=== PATIENT | female | born 2000 | race Caucasian/White ===

== ENCOUNTER 2018-08-25 16:25 | Emergency (ER) | payer OTHER ==
[2018-08-25] MEDS: NS 1,000 ML IV (19:30)
[2018-08-25 19:44] LABS: BASO # 0.1 10^3/uL (0.0-0.2); BASO % 0.8 % (0.0-1.0); EOS # 0.3 10^3/uL (0.0-0.50); HEMATOCRIT 44.7 % (36.0-47.0); HEMOGLOBIN 15.1 g/dl (12.0-15.5); IMMATURE GRANULOCYTE % 0.3 % (0-3.0); LYMPH # 2.4 10^3/uL (1.5-6.5); LYMPH % 36.8 % (24.0-44.0); MEAN CORPUSCULAR HEMOGLOBIN 30.8 pg (27.0-33.0); MEAN CORPUSCULAR HGB CONC 33.8 g/dl (32.0-36.5); MONO # 0.3 10^3/uL (0.0-0.8); MONO % 5.1 % (0.0-5.0); NEUTROPHILS # 3.4 10^3/uL (1.8-7.7); PLATELET COUNT, AUTOMATED 271 10^3/uL (150-450); RED BLOOD COUNT 4.91 10^6/uL (4.00-5.40); RED CELL DISTRIBUTION WIDTH 12.5 % (11.5-14.5); WHITE BLOOD COUNT 6.5 10^3/uL (4.0-10.0)
[2018-08-25 19:55] LABS: KETONE, URINE AUTO RFX NEGATIVE (NEGATIVE); LEUKOCYTE ESTERASE UR AUTO RFX NEGATIVE (NEGATIVE); NITRITE, URINE AUTO RFX NEGATIVE (NEGATIVE); RBC, URINE AUTO RFX 1 /HPF (0-3); SPECIFIC GRAVITY UR AUTO RFX 1.009 (1.002-1.035); SQUAM EPITHELIAL CELL UR AURFX 0 /HPF (0-6); WBC, URINE AUTO RFX 0 /HPF (0-3)
[2018-08-25 20:20] LABS: ALBUMIN 4.3 GM/DL (3.2-5.2); ALBUMIN/GLOBULIN RATIO 1.43 (1.00-1.93); ALKALINE PHOSPHATASE 85 U/L (45-117); ALT/SGPT 19 U/L (12-78); ANION GAP 8 MEQ/L (8-16); AST/SGOT 16 U/L (7-37); BILIRUBIN,DIRECT 0.1 MG/DL (0.0-0.2); BILIRUBIN,TOTAL 0.4 MG/DL (0.2-1.0); BLOOD UREA NITROGEN 7 MG/DL (7-18); CALCIUM LEVEL 9.9 MG/DL (8.5-10.1); CARBON DIOXIDE LEVEL 27 MEQ/L (21-32); CHLORIDE LEVEL 107 MEQ/L (98-107); CREATININE FOR GFR 0.82 MG/DL (0.55-1.30); GLUCOSE, FASTING 92 MG/DL (70-100); LIPASE 166 U/L (73-393); POTASSIUM SERUM 4.2 MEQ/L (3.5-5.1); SODIUM LEVEL 142 MEQ/L (136-145); TOTAL PROTEIN 7.3 GM/DL (6.4-8.2)
[2018-08-25] MEDS ORDERED: ISOVUE-370 76% 100ML VIAL (Q9967) As Ordered (20:32)
[2018-08-25 23:46] LABS: CHLAMYDIA DNA AMPLIFICATION NEGATIVE (NEGATIVE); GC DNA AMPLIFICATION NEGATIVE (NEGATIVE)
== END 2018-08-25 23:29 | disposition home or self-care (01) ==
LOC: M ED 16:25
DX: N92.6 Irregular menstruation, unspecified (principal); R10.2 Pelvic and perineal pain
CPT/HCPCS: Q9967

== ENCOUNTER 2019-02-13 11:37 | Emergency (ER) | payer OTHER ==
[~2019-02-13] VITALS: Ht 157.5 cm; Wt 68.2 kg
[2019-02-13] MEDS ORDERED: IBUPROFEN 800 MG TAB PO ONE (12:30)
[2019-02-13 12:38] LABS: BASO % 0.6 % (0.0-1.0); EOS # 0.2 10^3/uL (0.0-0.50); EOS % 4.7 % (0.0-3.0); HEMATOCRIT 43.2 % (36.0-47.0); HEMOGLOBIN 14.9 g/dl (12.0-15.5); LYMPH # 1.5 10^3/uL (1.5-6.5); LYMPH % 31.5 % (24.0-44.0); MEAN CORPUSCULAR HEMOGLOBIN 30.6 pg (27.0-33.0); MEAN CORPUSCULAR HGB CONC 34.5 g/dl (32.0-36.5); MEAN CORPUSCULAR VOLUME 88.7 fl (80.0-96.0); MONO # 0.4 10^3/uL (0.0-0.8); MONO % 9.3 % (0.0-5.0); NEUTROPHILS # 2.5 10^3/uL (1.8-7.7); NEUTROPHILS % 53.7 % (36.0-66.0); PLATELET COUNT, AUTOMATED 215 10^3/uL (150-450); RED BLOOD COUNT 4.87 10^6/uL (4.00-5.40); WHITE BLOOD COUNT 4.7 10^3/uL (4.0-10.0)
[2019-02-13 13:07] LABS: BLOOD UREA NITROGEN 12 MG/DL (7-18); CALCIUM LEVEL 8.8 MG/DL (8.5-10.1); CARBON DIOXIDE LEVEL 24 MEQ/L (21-32); CHLORIDE LEVEL 110 MEQ/L (98-107); CREATININE FOR GFR 0.79 MG/DL (0.55-1.30); GLUCOSE, FASTING 84 MG/DL (70-100); POTASSIUM SERUM 4.2 MEQ/L (3.5-5.1); SODIUM LEVEL 139 MEQ/L (136-145)
[2019-02-13 13:32] VITALS: BP 121/66
[2019-02-13] MEDS ORDERED: IBUP80TA PO (14:16)
[2019-02-13 14:24] LABS: CHLAMYDIA DNA AMPLIFICATION NEGATIVE (NEGATIVE); GC DNA AMPLIFICATION NEGATIVE (NEGATIVE)
[2019-02-15 10:11] LABS: TESTOSTERONE FREE (DIRECT) 1.2 pg/mL (0.0-4.2)
== END 2019-02-13 14:24 | disposition home or self-care (01) ==
LOC: M ED 11:37
DX: R10.2 Pelvic and perineal pain (principal); N92.6 Irregular menstruation, unspecified; Z87.39 Personal history of other diseases of the musculoskeletal system and connective tissue

== ENCOUNTER 2019-04-20 09:43 | Day surgery (SDC) | payer OTHER ==
[~2019-04-20] VITALS: Ht 157.5 cm; Wt 71.3 kg
[~2019-04-20 09:43] MED LIST: ACETAMINOPHEN 650 MG SUPP PR ONE; IBUP80TA PO; LIDOCAINE 1% MDV 20ML VIAL SQ PRN; LR 1,000 ML IV ONE; NS 1,000 ML IV SCH
[2019-04-20 10:09] LABS: HEMATOCRIT 42.8 % (36.0-47.0); MEAN CORPUSCULAR HEMOGLOBIN 31.3 pg (27.0-33.0); MEAN CORPUSCULAR VOLUME 89.4 fl (80.0-96.0); PLATELET COUNT, AUTOMATED 245 10^3/uL (150-450); RED BLOOD COUNT 4.79 10^6/uL (4.00-5.40); WHITE BLOOD COUNT 6.2 10^3/uL (4.0-10.0)
[2019-04-20 10:37] LABS: BLOOD UREA NITROGEN 11 MG/DL (7-18); CALCIUM LEVEL 9.4 MG/DL (8.5-10.1); CARBON DIOXIDE LEVEL 23 MEQ/L (21-32); CHLORIDE LEVEL 109 MEQ/L (98-107); GLUCOSE, FASTING 86 MG/DL (70-100); HCG, SERUM QUANTITATIVE < 1.0 MIU/ML; POTASSIUM SERUM 4.3 MEQ/L (3.5-5.1); SODIUM LEVEL 140 MEQ/L (136-145)
[2019-04-20] MEDS ORDERED: METHYLENE BLUE 0.5% (5MG/ML) 10 ML AMP (PROVAYBLUE)(Q9968 PER 1MG) As Ordered ONE (13:30)
[2019-04-20] MEDS ORDERED: BUPIVACAINE HCL 0.5% 30 ML VIAL As Ordered ONE (13:30)
[2019-04-20] MEDS ORDERED: ACETAMINOPHEN 650 MG SUPP As Ordered ONE (13:30)
[2019-04-20] MEDS ORDERED: PROPOFOL 200 MG/20 ML VIAL As Ordered ONE (14:05)
[2019-04-20] MEDS ORDERED: GLYCOPYRROLATE INJ 0.2 MG/ML 2 ML VIAL As Ordered ONE (14:05)
[2019-04-20] MEDS ORDERED: ONDANSETRON 4MG/2ML VIAL (J2405) As Ordered ONE ×2 (14:05→16:17)
[2019-04-20] MEDS ORDERED: PHENYLephrine HCL 500 MCG/5 ML (100MCG/ML) SYRINGE (J2370) As Ordered ONE (14:05)
[2019-04-20] MEDS ORDERED: MIDAZOLAM INJ 2 MG/2 ML VIAL (J2250) As Ordered ONE (14:05)
[2019-04-20] MEDS ORDERED: SUGAMMADEX SODIUM 500 MG/5 ML VIAL (BRIDION) As Ordered ONE (14:05)
[2019-04-20] MEDS ORDERED: LIDOCAINE 2% INJ 100 MG/5 ML SDV (FOR ANES.) As Ordered ONE (14:05)
[2019-04-20] MEDS ORDERED: dexameTHASONE 4 MG/ML 1ML VIAL (J1100) As Ordered ONE (14:05)
[2019-04-20] MEDS ORDERED: fentaNYL 250 MCG/5 ML INJECTION (J3010) As Ordered ONE (14:05)
[2019-04-20] MEDS ORDERED: ROCURONIUM BROMIDE 50 MG/5 ML VIAL As Ordered ONE (14:05)
[2019-04-20] MEDS ORDERED: ePHEDrine SULFATE 25 MG/5 ML(5MG/ML) SYRINGE As Ordered ONE (14:05)
[2019-04-20] MEDS ORDERED: KETOROLAC 60 MG/2 ML VIAL (J1885) As Ordered ONE (14:05)
[2019-04-20] MEDS ORDERED: ONDANSETRON 4MG/2ML VIAL (J2405) IV PRN (15:15)
[2019-04-20] MEDS ORDERED: PERCOCET 5MG/325MG TAB PO PRN (15:15)
[2019-04-20] MEDS ORDERED: LR 1,000 ML IV SCH (15:15)
[2019-04-20] MEDS ORDERED: oxyCODONE 5MG TAB As Ordered ONE (15:28)
[2019-04-20] MEDS: oxyCODONE 5MG TAB PO PRN ×2 (15:30→16:00)
[2019-04-20] MEDS ORDERED: fentaNYL 100 MCG/2 ML INJECTION (J3010) As Ordered ONE (16:17)
[2019-04-20] MEDS: fentaNYL 100 MCG/2 ML INJECTION (J3010) IV PRN ×4 (16:30→16:45)
[2019-04-20 19:20] VITALS: BP 113/70
[2019-04-20] MEDS ORDERED: KETOROLAC 30 MG/ML VIAL (J1885) IV PRN (20:30)
--- NOTE | 2019-04-27 14:06 | RO ---
DATE OF PROCEDURE: 04/20/2019 PREOPERATIVE DIAGNOSES: Vaginal pain and pelvic pain and radiating down the thigh. POSTOPERATIVE DIAGNOSES: Vaginal pain, pelvic pain radiating down the thigh, and primary infertility. Patent tubes, normal pelvis, removal of intrauterine contraceptive device (IUCD). OPERATION PROPOSED: Diagnostic laparoscopy, chromotubation of tubes, hysteroscopy, and removal of IUCD. OPERATION PERFORMED: Laparoscopy, chromotubation of tubes, and removal of IUCD. ANESTHESIA: General plus local anesthetic for intraperitoneal procedures. ESTIMATED BLOOD LOSS: Less than 10 mL SURGEON: Chandrakant Lawrence MD FIRESTOPPER INSTALLER: DESCRIPTION OF PROCEDURE: After appropriate anesthesia, prepped and draped in the lithotomy position, Cee catheter in the bladder draining clear urine, acetaminophen suppository 1300 mg per rectum. No antibiotics required. Sequentials in place. A weighted speculum in vagina. Single-tooth tenaculum on the anterior lip of the cervix. The cervix itself looked normal. The vagina, lateral hilton, anterior and posterior hilton looked normal. There was no perineal defect. There was no defect in the muscle architecture of the vagina. There was no bulging. There were no lesions indicating etiology behind vaginal pain. Re-prepping and draping, small subumbilical incision was made. Veress needle was applied. 3.1 liters of CO2 at a flow rate of 14 to a pressure of 15. Visiport was used. Direct entry into the abdomen. No evidence of perforation, hemorrhage, or bleeding. Panoramic view: Right upper quadrant was normal. Left upper quadrant was normal. Anterior aspect of the bladder was clear. The uterus itself was normal size and architecture. Posterior cul-de-sac was clear. No evidence of endometriosis, pelvic inflammatory disease. Both tubes were visualized at the fimbriated end. Appendix was noted to be normal. Chromotubation with a mavis's cannula was placed, and we got good flow immediately through both tubes bilaterally, indicating tubal patency. We see no evidence of pathology for this lady's pain or her secondary infertility. With instrument and pad count correct, the ports, the 5 mm on the left side was removed, as was the umbilical area. Subcuticular stitches were placed in all areas. Marcaine 0.25% for anesthesia. Skin tapes were done. We then went below. We were able to visualize and see the IUCD strings. These were pulled and sent to pathology under separate cover. We also evaluated the endometrial cavity based on her last period, and separately tissue was sent. With instrument and pad count correct, the uterus was replaced in anatomical position. Cee catheter was removed, and the patient was sent to recovery in good condition. SUZAN
== END 2019-04-20 19:25 | disposition home or self-care (01) ==
LOC: M SDC 09:43
PROVIDERS: ATTEND Obstetrics & Gynecology
DX: R10.2 Pelvic and perineal pain (principal); N97.9 Female infertility, unspecified
CPT/HCPCS: 36415; 49320; 58301; 58350; 80048; 84702; 85027; 88300; J1100; J1885; J2250; J2370; J2405; J3010; Q9968

== ENCOUNTER 2019-04-25 08:50 | Emergency (ER) | payer OTHER ==
[~2019-04-25] VITALS: Ht 157.5 cm; Wt 70.9 kg
[~2019-04-25 08:50] MED LIST changes: -ACETAMINOPHEN 650 MG SUPP PR ONE; -LIDOCAINE 1% MDV 20ML VIAL SQ PRN; -LR 1,000 ML IV ONE; -NS 1,000 ML IV SCH
[2019-04-25 08:51] VITALS: BP 108/72
[2019-04-25] MEDS ORDERED: DOCU100C16 (08:58)
[2019-04-25] MEDS ORDERED: ACET1TAB55 (08:58)
== END 2019-04-25 09:30 | disposition home or self-care (01) ==
LOC: M ED 08:50
DX: L76.82 Other postprocedural complications of skin and subcutaneous tissue (principal)

== ENCOUNTER 2019-05-25 19:11 | Emergency (ER) | payer OTHER ==
[~2019-05-25] VITALS: Ht 157.5 cm; Wt 68.2 kg
[~2019-05-25 19:11] MED LIST changes: +ACET1TAB55; +DOCU100C16
[2019-05-25] MEDS ORDERED: NAPR500T6 PO (19:24)
[2019-05-25 19:46] LABS: BASO # 0.1 10^3/uL (0.0-0.2); BASO % 0.6 % (0.0-1.0); EOS # 0.2 10^3/uL (0.0-0.50); EOS % 1.9 % (0.0-3.0); HEMATOCRIT 38.9 % (36.0-47.0); HEMOGLOBIN 13.9 g/dl (12.0-15.5); LYMPH # 2.8 10^3/uL (1.5-6.5); LYMPH % 28.7 % (24.0-44.0); MEAN CORPUSCULAR HEMOGLOBIN 31.6 pg (27.0-33.0); MEAN CORPUSCULAR HGB CONC 35.7 g/dl (32.0-36.5); MEAN CORPUSCULAR VOLUME 88.4 fl (80.0-96.0); MONO # 0.8 10^3/uL (0.0-0.8); NEUTROPHILS # 5.8 10^3/uL (1.8-7.7); NEUTROPHILS % 60.5 % (36.0-66.0); PLATELET COUNT, AUTOMATED 232 10^3/uL (150-450); WHITE BLOOD COUNT 9.6 10^3/uL (4.0-10.0)
[2019-05-25 20:06] LABS: ALT/SGPT 18 U/L (12-78); BILIRUBIN,DIRECT 0.2 MG/DL (0.0-0.2); BILIRUBIN,TOTAL 0.6 MG/DL (0.2-1.0); BLOOD UREA NITROGEN 11 MG/DL (7-18); CALCIUM LEVEL 9.1 MG/DL (8.5-10.1); CARBON DIOXIDE LEVEL 25 MEQ/L (21-32); CHLORIDE LEVEL 111 MEQ/L (98-107); CREATININE FOR GFR 0.77 MG/DL (0.55-1.30); GLUCOSE, FASTING 89 MG/DL (70-100); LIPASE 159 U/L (73-393); POTASSIUM SERUM 4.3 MEQ/L (3.5-5.1); SODIUM LEVEL 142 MEQ/L (136-145); TOTAL PROTEIN 7.1 GM/DL (6.4-8.2)
[2019-05-25] MEDS ORDERED: ISOVUE-370 76% 100ML VIAL (Q9967) As Ordered ONE (20:56)
[2019-05-25] MEDS ORDERED: ONDANSETRON 4MG/2ML VIAL (J2405) IV ONE (21:00)
[2019-05-25] MEDS ORDERED: NS 1,000 ML IV ONE (21:00)
[2019-05-25] MEDS ORDERED: KETOROLAC 30 MG/ML VIAL (J1885) IV ONE (21:30)
[2019-05-25 22:25] VITALS: BP 90/51
--- NOTE | 2019-05-25 22:53 | REPVR ---
EXAM: CT Abdomen and Pelvis With Contrast EXAM DATE/TIME: 05/25/2019 10:07 PM CLINICAL HISTORY: 18 years old, female; Abdominal pain; Generalized; Prior surgery; Surgery date: 1-6 months; Additional info: Post op (ex lap) upper and mid abdominal pain TECHNIQUE: Imaging protocol: Axial computed tomography images of the abdomen and pelvis with intravenous contrast. Coronal and sagittal reformatted images were created and reviewed. Radiation optimization: All CT scans at this facility use at least one of these dose optimization techniques: automated exposure control; mA and/or kV adjustment per patient size (includes targeted exams where dose is matched to clinical indication); or iterative reconstruction. Contrast material: ISOVUE 370;Contrast volume: 100 ml;Contrast route: IV; COMPARISON: CT ABD/PEL W/IV CONTRAST ONLY 08/25/2018 8:37 PM FINDINGS: Liver: There is a diffuse decrease in hepatic parenchymal density, consistent with fatty infiltration. Gallbladder and bile ducts: Normal. No calcified stones. No ductal dilation. Pancreas: Normal. No ductal dilation. Spleen: Small cyst in the spleen measures 5 mm. Adrenals: Normal. No mass. Kidneys and ureters: Normal. No hydronephrosis. Stomach and bowel: Normal. No obstruction. No mucosal thickening. Appendix: No evidence of appendicitis. Intraperitoneal space: Normal. No free air. No significant fluid collection. Vasculature: Normal. No abdominal aortic aneurysm. Lymph nodes: Normal. No enlarged lymph nodes. Bladder: Unremarkable as visualized. Reproductive: Corpus luteum right ovary measures 1.4 cm. Fluid and air locules demonstrated between the uterus and right adnexal region may be located within bowel loops. Clinical correlation to exclude other etiologies including findings related to prior laparoscopic surgery or infection suggested. Bones/joints: No acute fracture. No dislocation. Soft tissues: Unremarkable. IMPRESSION: 1. There is a diffuse decrease in hepatic parenchymal density, consistent with fatty infiltration. 2. Fluid and air locules demonstrated between the uterus and right adnexal region may be located within bowel loops. Clinical correlation to exclude other etiologies including findings related to prior laparoscopic surgery or infection suggested. Electronically signed by: Govind Godfrey On 05/25/2019 22:53:10 PM
[2019-05-25] MEDS ORDERED: ONDA4TAB6 PO (23:26)
== END 2019-05-25 23:51 | disposition home or self-care (01) ==
LOC: M ED 19:11
DX: Z98.890 Other specified postprocedural states (principal)
CPT/HCPCS: 74177; 80048; 80076; 81001; 83690; 85025; 96374; 96375; 99283; J1885; J2405; Q9967

== ENCOUNTER 2019-05-28 02:27 | Emergency (ER) | payer OTHER ==
[~2019-05-28] VITALS: Ht 157.5 cm; Wt 68.2 kg
[~2019-05-28 02:27] MED LIST changes: +NAPR500T6 PO; +ONDA4TAB6 PO
[2019-05-28 03:26] LABS: BASO % 0.5 % (0.0-1.0); EOS # 0.2 10^3/uL (0.0-0.50); EOS % 3.3 % (0.0-3.0); HEMOGLOBIN 12.7 g/dl (12.0-15.5); LYMPH # 2.1 10^3/uL (1.5-6.5); LYMPH % 32.9 % (24.0-44.0); MEAN CORPUSCULAR HEMOGLOBIN 32.1 pg (27.0-33.0); MEAN CORPUSCULAR HGB CONC 35.3 g/dl (32.0-36.5); MEAN CORPUSCULAR VOLUME 90.9 fl (80.0-96.0); MONO # 0.6 10^3/uL (0.0-0.8); MONO % 9.1 % (0.0-5.0); NEUTROPHILS # 3.4 10^3/uL (1.8-7.7); PLATELET COUNT, AUTOMATED 187 10^3/uL (150-450); RED BLOOD COUNT 3.96 10^6/uL (4.00-5.40); WHITE BLOOD COUNT 6.4 10^3/uL (4.0-10.0)
[2019-05-28 03:59] LABS: HCG, SERUM QUALITATIVE NEGATIVE (NEGATIVE)
[2019-05-28] MEDS ORDERED: METOCLOPRAMIDE INJ 10MG/2ML VIAL (J2765) IV ONE (04:00)
[2019-05-28 04:06] LABS: ALBUMIN 3.3 GM/DL (3.2-5.2); ALT/SGPT 18 U/L (12-78); BILIRUBIN,DIRECT 0.2 MG/DL (0.0-0.2); BILIRUBIN,TOTAL 0.3 MG/DL (0.2-1.0); BLOOD UREA NITROGEN 7 MG/DL (7-18); CALCIUM LEVEL 8.2 MG/DL (8.5-10.1); CARBON DIOXIDE LEVEL 25 MEQ/L (21-32); CHLORIDE LEVEL 112 MEQ/L (98-107); CREATININE FOR GFR 0.76 MG/DL (0.55-1.30); GLUCOSE, FASTING 91 MG/DL (70-100); LIPASE 159 U/L (73-393); POTASSIUM SERUM 4.2 MEQ/L (3.5-5.1); SODIUM LEVEL 143 MEQ/L (136-145); TOTAL PROTEIN 6.2 GM/DL (6.4-8.2)
[2019-05-28] MEDS ORDERED: METOCLOPRAMIDE 10 MG TAB PO ONE (04:15)
[2019-05-28] MEDS ORDERED: MAGNESIUM CITRATE 300 ML BTL PO ONE (05:30)
[2019-05-28 05:39] VITALS: BP 103/57
--- NOTE | 2019-05-28 07:47 | REP ---
Supine abdomen two AP views: The bowel gas pattern is normal. There is a metallic plate superimposed over the left upper quadrant. This was not present on the abdomen/pelvis CT dated 05/25/2019. This may be with an [place] or clothing. The bladder is distended. There are no calcifications. Skeletal structures and soft tissues otherwise are unremarkable. Impression: Normal bowel gas pattern. Distended bladder. Metallic plate projected over the left upper quadrant. Electronically Signed by Andriy Atkins MD 05/28/2019 07:39 A
== END 2019-05-28 05:40 | disposition home or self-care (01) ==
LOC: M ED 02:27
DX: K59.00 Constipation, unspecified (principal); N80.9 Endometriosis, unspecified

== ENCOUNTER 2019-08-26 12:19 | Emergency (ER) | payer OTHER ==
[~2019-08-26] VITALS: Ht 160 cm; Wt 77.7 kg
[2019-08-26 13:06] LABS: BASO # 0.1 10^3/uL (0.0-0.2); BASO % 0.9 % (0.0-1.0); EOS # 0.2 10^3/uL (0.0-0.5); EOS % 3.4 % (0.0-3.0); HEMATOCRIT 44.3 % (36.0-47.0); HEMOGLOBIN 15.3 g/dl (12.0-15.5); LYMPH % 33.3 % (24.0-44.0); MEAN CORPUSCULAR HEMOGLOBIN 31.2 pg (27.0-33.0); MEAN CORPUSCULAR HGB CONC 34.5 g/dl (32.0-36.5); MEAN CORPUSCULAR VOLUME 90.2 fl (80.0-96.0); MONO # 0.5 10^3/uL (0.0-0.8); MONO % 8.5 % (0.0-5.0); NEUTROPHILS # 3.2 10^3/uL (1.5-8.5); NEUTROPHILS % 53.6 % (36.0-66.0); PLATELET COUNT, AUTOMATED 253 10^3/uL (150-450); RED BLOOD COUNT 4.91 10^6/uL (4.00-5.40); WHITE BLOOD COUNT 5.9 10^3/uL (4.0-10.0)
[2019-08-26 13:36] LABS: BLOOD UREA NITROGEN 8 MG/DL (7-18); CALCIUM LEVEL 9.2 MG/DL (8.5-10.1); CARBON DIOXIDE LEVEL 26 MEQ/L (21-32); CHLORIDE LEVEL 107 MEQ/L (98-107); GLUCOSE, FASTING 81 MG/DL (70-100); HCG, SERUM QUANTITATIVE 225 MIU/ML; POTASSIUM SERUM 4.3 MEQ/L (3.5-5.1); SODIUM LEVEL 138 MEQ/L (136-145)
[2019-08-26 16:28] VITALS: BP 112/67
--- NOTE | 2019-08-26 18:56 | REP ---
REASON: Vaginal bleeding. PRIORS: None. The uterus measures 7.4 x 3.9 x 4.8 cm. The parenchymal echo pattern is within normal limits. The endometrial echo complex measures 1.1 cm in thickness. There is no evidence of an intrauterine . The right ovary measures 3.4 x 2.2 x 2.1 cm and is within normal limits. There is an involuting follicle in the right ovary which measures 1.8 cm. The left ovary measures 2.6 x 1.3 x 1.3 cm and is within normal limits. There is a trace amount of free fluid in the cul-de-sac, probably physiologic. IMPRESSION:There is no evidence of an intrauterine or extrauterine . There is no evidence of ovarian torsion. There is what most likely an involuting dominant follicle in the right ovary as described above. Electronically Signed by Suleman Belle DO 08/29/2019 02:50 P
== END 2019-08-26 16:52 | disposition home or self-care (01) ==
LOC: M ED 12:19
DX: O20.0 Threatened abortion (principal); Z3A.00 Weeks of gestation of pregnancy not specified

== ENCOUNTER → 2019-08-29 | Outpatient (CLI) | payer OTHER | LOC: M LAB 06:05 | PROVIDERS: ATTEND Emergency Medicine | DX: O20.0 Threatened abortion (principal); O26.859 Spotting complicating pregnancy, unspecified trimester; Z3A.00 Weeks of gestation of pregnancy not specified ==